=== PATIENT | female | born 1980 | race Caucasian/White ===

== ENCOUNTER 2017-03-29 20:30 | Emergency (ER) | payer MEDICAID ==
--- NOTE | 2017-03-29 21:21 | EDM.PDOC ---
ED HPI GENERAL MEDICAL PROBLEM - General Chief Complaint: Skin Complaint Stated Complaint: PAIN/INFECTION RT PINKY Time Seen by Provider: 03/29/17 21:15 Source of Information: Reports: Patient History Limitations: Reports: No Limitations - History of Present Illness INITIAL COMMENTS - FREE TEXT/NARRATIVE: HISTORY AND PHYSICAL: [] 37-year-old female presenting with red painful fifth finger on her right hand History of Present Illness: [] For several days has been edema and pain she's been trying to squeeze it and get the infection to come out without any luck Review of Systems: As per history of present illness and below otherwise all systems reviewed and negative. Past medical history: As per history of present illness and as reviewed below otherwise noncontributory. Surgical history: As per history of present illness and as reviewed below otherwise noncontributory. Social history: No reported history of drug or alcohol abuse. Family history: As per history of present illness and as reviewed below otherwise noncontributory. Physical exam: Alert and oriented female speaking in full sentences answering questions appropriately HEENT: Atraumatic, normocehpalic, pupils reactive, negative for conjunctival pallor or scleral icterus, mucous membranes moist, throat clear, neck supple, nontender, trachea midline. Lungs: Clear to auscultation, breath sounds equal bilaterally, chest non tender. Heart: S1S2, regular, negative for clicks, rubs, or JVD. Extremities: Atraumatic, negative for cords or calf pain. Right fifth finger with erythema below the nailbed Neurovascular unremarkable. Neuro: Awake, alert, oriented. Cranial nerves II through XII unremarkable. Cerebellum unremarkable. Motor and sensory unremarkable throughout. Exam nonfocal. Diagnostics: [] Therapeutics: [] Impression: [Perionychia] Plan: [Epson salt water soaks 3 times a day Doxycycline Follow-up with your primary care provider next week] Definitive disposition and diagnosis as appropriate pending reevaluation and review of above. Onset: Gradual Duration: Day(s): Right Hand Pain Score (Numeric/FACES): 5 - Related Data Allergies Allergy/AdvReac Type Severity Reaction Status Date / Time amoxicillin [Amoxicillin] Allergy Cardiac Verified 03/29/17 21:11 Arrest azithromycin Allergy Swelling Verified 03/29/17 21:11 citalopram hydrobromide Allergy Numbness Verified 03/29/17 21:11 [From Celexa] latex Allergy Rash Verified 03/29/17 21:11 quetiapine fumarate Allergy Hallucinati Verified 03/29/17 21:11 [From Seroquel] ons walnut Allergy Shortness Uncoded 03/29/17 21:11 of Breath Home Meds: Home Meds Albuterol [Ventolin HFA] 1 puff INH Q4H PRN 01/04/14 [History] Venlafaxine [Effexor XR] 1 tab PO DAILY 11/21/16 [History] Doxycycline [Vibramycin] 100 mg PO Q12HR #30 cap 03/29/17 [Rx] Past Medical History Respiratory History: Reports: Asthma Psychiatric History: Reports: Anxiety, Depression - Infectious Disease History Infectious Disease History: Reports: Chicken Pox - Past Surgical History Female Surgical History: Reports: Hysterectomy Social & Family History - Family History Family Medical History: Noncontributory - Tobacco Use Smoking Status *Q: Current Every Day Smoker Years of Tobacco use: 17 Packs/Tins Daily: 1 Second Hand Smoke Exposure: Yes - Caffeine Use Caffeine Use: Reports: Soda - Alcohol Use Days Per Week of Alcohol Use: 0 - Recreational Drug Use Recreational Drug Use: No ED ROS GENERAL - Review of Systems Review Of Systems: ROS reveals no pertinent complaints other than HPI. ED EXAM, SKIN/RASH Exam: See Below (See dictation) Course - Vital Signs Last Recorded V/S: Last Vital Signs Temp 36.2 C 03/29/17 21:12 Pulse 98 03/29/17 21:12 Resp 17 03/29/17 21:12 BP 120/75 03/29/17 21:12 Pulse Ox 97 03/29/17 21:12 Departure - Departure Time of Disposition: 21:19 Disposition: Home, Self-Care 01 Condition: Good Clinical Impression: Perionychia of finger Qualifiers: Laterality: right Qualified Code(s): L03.011 - Cellulitis of right finger - Discharge Information Prescriptions: Doxycycline [Vibramycin] 100 mg PO Q12HR #30 cap Forms: ED Department Discharge Additional Instructions: The following information is given to patients seen in the emergency department who are being discharged to home. This information is to outline your options for follow-up care. We provide all patients seen in our emergency department with a follow-up referral. The need for follow-up, as well as the timing and circumstances, are variable depending upon the specifics of your emergency department visit. If you don't have a primary care physician on staff, we will provide you with a referral. We always advise you to contact your personal physician following an emergency department visit to inform them of the circumstance of the visit and for follow-up with them and/or the need for any referrals to a consulting specialist. The emergency department will also refer you to a specialist when appropriate. This referral assures that you have the opportunity for followup care with a specialist. All of these measure are taken in an effort to provide you with optimal care, which includes your followup. Under all circumstances we always encourage you to contact your private physician who remains a resource for coordinating your care. When calling for followup care, please make the office aware that this follow-up is from your recent emergency room visit. If for any reason you are refused follow-up, please contact the [facility] emergency department at and asked to speak to the emergency department charge nurse. Prescription was sent to [facility] doxycycline Epson salt water soaks 3 times daily Follow-up next week with your primary care provider
== END 2017-03-29 21:35 | disposition home or self-care (01) ==
LOC: MW.ED 20:30
CPT/HCPCS: 99283

== ENCOUNTER 2017-05-17 15:23 | Emergency (ER) | payer MEDICAID ==
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
[2017-05-17 16:36] LABS: CHLORIDE,CL 103 mmol/L (98-110); SODIUM,NA 136 mmol/L (136-146)
[2017-05-17 18:28] VITALS: BP 118/72
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
== END 2017-05-17 16:55 | disposition home or self-care (01) ==
LOC: MW.ED 15:23
DX: F19.10 Other psychoactive substance abuse, uncomplicated (principal); J45.909 Unspecified asthma, uncomplicated; F41.9 Anxiety disorder, unspecified; F32.9 Major depressive disorder, single episode, unspecified; F17.210 Nicotine dependence, cigarettes, uncomplicated; Z13.9 Encounter for screening, unspecified; Z88.1 Allergy status to other antibiotic agents; Z88.8 Allergy status to other drugs, medicaments and biological substances; Z91.040 Latex allergy status; Z91.018 Allergy to other foods; Z79.899 Other long term (current) drug therapy; Z90.710 Acquired absence of both cervix and uterus; Y04.8XXA Assault by other bodily force, initial encounter
CPT/HCPCS: 36415; 72040; 72040-26; 80053; 80305; 81001; 81025; 85025; 99283; 99284